=== PATIENT | male | born 2000 | race Caucasian/White ===

== ENCOUNTER 2023-03-14 14:08 | Emergency (ER) | payer OTHER, SELFPAY ==
[2023-03-14 14:23] VITALS: BP 142/83; PULSE 76; RESP 16; TEMP 36.4; O2SAT 100
[2023-03-14] MEDS: TETANUS,DIPHTHERIA,AC PERTUSSIS ADULT (0.5 ML) BOOSTRIX IM (14:39)
--- NOTE | 2023-03-14 14:41 | ED.WOUNDLAC ---
HPI - Wound/Laceration General Chief Complaint: Wound/Laceration Stated Complaint: Left Hand Laceration Time Seen by Provider: 03/14/23 14:30 Source: patient and RN notes reviewed Mode of arrival: ambulatory Limitations: no limitations History of Present Illness HPI narrative: Patient presents today with a laceration to his left hand that was cut on a piece of metal at home 1 hour prior to arrival. Patient currently rates his pain 5/10. Denies numbness or tingling. He is not up-to-date on his tetanus vaccine. Related Data Home Medications Medication Instructions Recorded Confirmed No Home Medications 03/14/23 03/14/23 Allergies Allergy/AdvReac Type Severity Reaction Status Date / Time No Known Allergies Allergy Mild Verified 03/14/23 14:13 Review of Systems Review of Systems: CONSTITUTIONAL: Denies body aches, fever, chills, or sweats. EYES: Denies visual changes, redness, or discharge. ENT: Denies rhinorrhea, congestion, sore throat, or otalgia. CARDIOVASCULAR: Denies chest pain, palpitations, or edema. RESPIRATORY: Denies cough or dyspnea. GASTROINTESTINAL: Denies abdominal pain, nausea, vomiting, or diarrhea. GENITOURINARY: Denies dysuria or hematuria. SKIN: Denies rash, itching. + left hand laceration MUSCULOSKELETAL: Denies back pain, joint pain, or myalgia. NEUROLOGIC: Denies headache, numbness, tingling, or weakness. PSYCH: Denies depression or anxiety. PMFSH Comments At time of signature, I have reviewed and agree with nursing past medical, surgical, social and family history unless otherwise noted. Please see nursing chart for further information. There is no relevant family history pertinent to the presenting complaint Exam Narrative: GENERAL: Well-appearing, well-nourished, and in no acute distress. HEAD: Normocephalic, atraumatic. EYES: EOMI. No redness or drainage. Conjunctivae normal. ENT: Mucous membranes pink and moist. NECK: Normal AROM. CHEST: No respiratory distress. EXTREMITIES: Normal range of motion. No edema. SKIN: Warm, dry, no rash. Capillary refill normal. Normal skin turgor. 1.5 cm full thickness linear laceration to the left thenar eminence that extends an additional 2.5cm as a superficial linear abrasion. Distal sensation intact. Capillary refill normal. Full range of motion of the thumb against resistance. No active bleeding. NEURO: No focal deficits. Alert and oriented x3. Gait steady. PSYCH: Normal affect. No signs of depression or anxiety. Course Course Level of Care: Express Care Visit Vital Signs Vital signs: Vital Signs Temperature 97.5 F L 03/14/23 14:23 Pulse Rate 76 03/14/23 14:23 Respiratory Rate 16 03/14/23 14:23 Blood Pressure 142/83 H 03/14/23 14:23 Pulse Oximetry 100 03/14/23 14:23 Oxygen Delivery Room Air 03/14/23 14:23 Temperature 97.5 F L 03/14/23 14:23 Pulse Rate 76 03/14/23 14:23 Respiratory Rate 16 03/14/23 14:23 Blood Pressure 142/83 H 03/14/23 14:23 Pulse Oximetry 100 03/14/23 14:23 Oxygen Delivery Room Air 03/14/23 14:23 Reviewed Procedures Laceration Laceration 1: Date: 03/14/23 Time: 14:55 Site: hand Side (If applicable): left Size (cm): 4 Description: linear Depth: simple, single layer Local Anesthetic: none ====== Skin Level ====== Skin layer closed with: dermabond and steri strips ====== Subcutaneous Layer ====== ====== Muscle Layer ====== ====== Tendon Layer ====== MDM - Wound/Laceration MDM Narrative Medical decision making narrative: After extensive conversation with patient regarding different types of repair of his laceration, he has opted for repair with Steri-Strips and glue instead of sutures. States he does not want to have to come back for removal of stitches. Repaired with Steri-Strips and glue. No prescription medications indicated at this time. Anticipatory guidance g
== END 2023-03-14 14:57 | disposition home or self-care (01) ==
PROVIDERS: Emergency Provider Nurse Practitioner
DX: S61.412A Laceration without foreign body of left hand, initial encounter (principal); W45.8XXA Other foreign body or object entering through skin, initial encounter; Z23 Encounter for immunization
CPT/HCPCS: 12002; 90471; 90715; 99212; G0463